=== PATIENT | male | born 1990 | race African-American/Black ===

== ENCOUNTER 2021-12-21 20:43 | Emergency (ER) | payer MEDICAID, OTHER ==
[2021-12-21] MEDS ORDERED: SODIUM CHLORIDE 0.9% 1,000 ML IV ONE (21:15)
[2021-12-21 22:25] LABS: Albumin 3.4 g/dL (3.4-5.0); Magnesium 1.9 mg/dL (1.6-2.6); Potassium 3.8 mmol/L (3.5-5.1)
[2021-12-21 22:30] LABS: BUN/Creatinine Ratio 16.9; Basophils # (auto) 0 10 ^3/uL (0-0.2); Basophils % (auto) 0.6 % (0.0-2.0); Bilirubin, Total 1.1 mg/dL (0.2-1.0); Eosinophils # (auto) 0 10 ^3/uL (0-0.8); Eosinophils % (auto) 0.7 % (0.0-7.0); Hematocrit 39.5 % (41.0-53.0); Hemoglobin 12.9 g/dL (13.5-17.5); Lymphocytes # (auto) 1.9 10 ^3/uL (0.4-5.4); Lymphocytes % (auto) 37.3 % (10.0-50.0); Mean Corpuscular Hemoglobin 30.7 pg (28.0-32.0); Mean Corpuscular Hgb Conc. 32.6 g/dL (32.0-36.0); Monocytes # (auto) 0.4 10 ^3/uL (0-1.3); Monocytes % (auto) 7.9 % (0.0-12.0); Neutrophils # (auto) 2.7 10 ^3/uL (1.6-8.6); Neutrophils % (auto) 53.5 % (37.0-80.0); Nucleated Red Blood Cells % 0.2 %; Red Cell Distribution Width 12.1 % (11.8-14.3); Total Protein 6.2 g/dL (6.4-8.2); White Blood Cell 5.1 10^3/uL (4.4-10.8)
[2021-12-21] MEDS ORDERED: InsuLIN REG 1unit/0.01ml Soln (100units/ml) IV ONE (22:45)
[2021-12-21 23:16] VITALS: BP 139/65
== END 2021-12-21 23:49 | disposition home or self-care (01) ==
LOC: ER 20:43
DX: E11.65 Type 2 diabetes mellitus with hyperglycemia (principal)
CPT/HCPCS: 36415; 71045; 80053; 82962; 83605; 83735; 85025; 93005; 96361; 96374; 99285; J1815; J7030

== ENCOUNTER 2022-05-08 13:43 | Emergency (ER) | payer MEDICAID ==
[~2022-05-08] VITALS: Ht 177.8 cm; Wt 75.5 kg
[2022-05-08] MEDS ORDERED: KETOROLAC TROMETH 60MG/2ML VIAL IM ONE (22:00)
[2022-05-08 22:13] VITALS: BP 125/83
== END 2022-05-08 22:29 | disposition home or self-care (01) ==
LOC: ER 13:43
DX: R07.89 Other chest pain (principal); E11.9 Type 2 diabetes mellitus without complications; F17.210 Nicotine dependence, cigarettes, uncomplicated; Z20.822 Contact with and (suspected) exposure to COVID-19
CPT/HCPCS: 36415; 71046; 84484; 87426; 87804; 93005; 96372; 99285; J1885